=== PATIENT | female | born 1990 | race Caucasian/White ===

== ENCOUNTER 2020-07-17 16:08 | Emergency (ER) | payer OTHER ==
[2020-07-17] MEDS ORDERED: NAPROSYN500 MG PO (19:54)
[2020-07-17] MEDS ORDERED: NEOSPORIN OINT30 GM TOP (19:54)
[2020-07-17] MEDS ORDERED: CEPHALEXIN500 M1 PO (19:54)
[2020-08-06] MEDS ORDERED: HYDROCODON-ACE1 EAC4 PO (11:33)
[2020-08-06] MEDS ORDERED: COLACE100 MG PO (11:33)
== END 2020-07-17 20:19 | disposition home or self-care (01) ==
LOC: ER1 16:08
DX: T81.33XA Disruption of traumatic injury wound repair, initial encounter (principal); S51.832A Puncture wound without foreign body of left forearm, initial encounter; W34.00XA Accidental discharge from unspecified firearms or gun, initial encounter
CPT/HCPCS: 73030; 73080; 73090; 93971; 99284

== ENCOUNTER → 2020-08-06 | Day surgery (SDC) | payer OTHER ==
[~2020-08-06] MED LIST: CEPHALEXIN500 M1 PO; COLACE100 MG PO; HYDROCODON-ACE1 EAC4 PO; NAPROSYN500 MG PO; NEOSPORIN OINT30 GM TOP
== END | disposition home or self-care (01) ==
LOC: OR 07:16
DX: S51.832A Puncture wound without foreign body of left forearm, initial encounter (principal); W33.02XA Accidental discharge of hunting rifle, initial encounter; E66.01 Morbid (severe) obesity due to excess calories; Z68.39 Body mass index [BMI] 39.0-39.9, adult
CPT/HCPCS: 84703; J0690; J1100; J2001; J2250; J2405; J2704; J3010; J7120